=== PATIENT | female | born 1985 | race Two or more races ===

== ENCOUNTER 2019-03-28 16:31 | Emergency (ER) | payer SELFPAY ==
--- NOTE | 2019-03-28 17:13 | ER Document Report ---
ED Medical Screen (RME) - General Chief Complaint: Abdominal Pain Stated Complaint: STOMACH PAIN Time Seen by Provider: 03/28/19 17:08 Mode of Arrival: Ambulatory Information source: Patient Notes: Patient is a 33-year-old female presented to the emergency department chief complaint of low abdominal pain and vaginal bleeding in the setting of . Patient reports she is a G5, P4. She states she had one episode of vaginal bleeding approximately 3 days ago, denies passage of any clots. She reports persistent low abdominal cramping. Exam: Abdomen soft, nontender with no guarding no rebound. I have greeted and performed a rapid initial assessment of this patient. A comprehensive ED assessment and evaluation of the patient, analysis of test results and completion of the medical decision making process will be conducted by additional ED providers. I have specifically instructed the patient or family members with the patient to immediately return to any nursing staff should anything change in the patient's condition or with their chief complaint. This medical record was dictated with voice recognizing software. There may be grammatical, syntax errors that are unintended. - Related Data Allergies/Adverse Reactions: No Known Allergies Allergy (Verified 03/28/19 16:38) Physical Exam - Vital signs Vitals: Temp Pulse Resp BP Pulse Ox 98.5 F 70 18 104/54 L 97 03/28/19 16:41 03/28/19 16:41 03/28/19 16:41 03/28/19 16:41 03/28/19 16:41 Course - Vital Signs Vital signs: Temp Pulse Resp BP Pulse Ox 98.5 F 70 18 104/54 L 97 03/28/19 16:41 03/28/19 16:41 03/28/19 16:41 03/28/19 16:41 03/28/19 16:41
[2019-03-28 18:05] LABS: ABSOLUTE BASOPHILS # (AUTO) 0.1 10^3/uL (0.0-0.2); ABSOLUTE EOSINOPHILS # (AUTO) 0.3 10^3/uL (0.0-0.6); ABSOLUTE MONOCYTES (AUTO) 0.9 10^3/uL (0.1-1.4); BASOPHILS % (AUTO) 0.6 % (0-2); EOSINOPHILS % (AUTO) 2.6 % (0-6); HEMATOCRIT 39.1 % (36.0-47.0); HEMOGLOBIN 13.1 g/dL (12.0-15.5); LYMPHOCYTES % (AUTO) 26.7 % (13-45); MEAN CORPUSCULAR HEMOGLOBIN 29.7 pg (27.0-33.4); MEAN CORPUSCULAR HGB CONC 33.6 g/dL (32.0-36.0); MEAN CORPUSCULAR VOLUME 89 fl (80-97); PLATELET COUNT 216 10^3/uL (150-450); RED BLOOD COUNT 4.42 10^6/uL (3.72-5.28); RED CELL DISTRIBUTION WIDTH 12.4 % (11.5-14.0); SEGMENTED NEUTROPHILS % (AUTO) 62.1 % (42-78); TOTAL CELLS COUNTED % (AUTO) 100 %; WHITE BLOOD COUNT 11.2 10^3/uL (4.0-10.5)
[2019-03-28 18:08] LABS: APPEARANCE,URINE SLIGHTLY-CLOUDY; BILIRUBIN,URINE NEGATIVE (NEGATIVE); COLOR,URINE YELLOW; GLUCOSE, URINE NEGATIVE (NEGATIVE); KETONES,URINE NEGATIVE (NEGATIVE); LEUKOCYTE ESTERASE,URINE TRACE (NEGATIVE); NITRITE,URINE POSITIVE (NEGATIVE); PROTEIN,URINE NEGATIVE (NEGATIVE); URINE SPECIFIC GRAVITY 1.016; UROBILINOGEN,URINE NEGATIVE mg/dL (<2.0)
[2019-03-28] MEDS ORDERED: ACETAMINOPHEN 325 MG TABLET PO ONE (18:59)
--- NOTE | 2019-03-28 19:03 | RADIOLOGY REPORT (SQ) ---
EXAM DESCRIPTION: U/S OB TRANSVAGINAL W/O DOP COMPLETED DATE/TIME: 03/28/2019 6:22 pm REASON FOR STUDY: vag bleed, abd pain, early COMPARISON: None. TECHNIQUE: Transvaginal static and realtime grayscale images acquired of the pelvis. Additional shila cted spectral and color Doppler images recorded. All images stored on PACs. bHCG: Not available. CLINICAL DATES: LMP 02/11/2019. 6 weeks 3 days. LIMITATIONS: None. FINDINGS: FETUS: Single Living intrauterine . ULTRASOUND EGA: 6 weeks 6 days. ULTRASOUND [place]: 11/15/2019 EFW: Not applicable less than 20 weeks. CRL: 0.8 cm. FHR: 130 beats per minute. SURVEY: Too early to assess. AMNIOTIC FLUID: Adequate amount. PLACENTA: Not yet developed due to early gestation. SUBCHORIONIC BLEED: No SIZE OF BLEED: Not applicable. UTERUS: No masses. No anomalies. CERVICAL LENGTH: 2.5 cm. Closed. RIGHT ADNEXA: Normal ovary with normal vascular flow. 1.3 x 1.5 x 1.6 cm. No adnexal free fluid. No adnexal masses. LEFT ADNEXA: Normal ovary with normal vascular flow. 2.4 x 2.3 x 2.5 cm. No adnexal free fluid. No adnexal masses. FREE FLUID: None. OTHER: No other significant finding. IMPRESSION: LIVING INTRAUTERINE . EGA 6 weeks 6 days. Trimester of : First trimester - 0 to 13 weeks. TECHNICAL DOCUMENTATION: JOB ID: [id number] [employer]- All Rights Reserved Reading location - IP/workstation name: [email or web address]
--- NOTE | 2019-03-28 20:32 | ER Document Report ---
ED General - General Chief Complaint: Abdominal Pain Stated Complaint: STOMACH PAIN Time Seen by Provider: 03/28/19 17:08 Primary Care Provider: [facility] [Provider Group] - 04/01/19 Mode of Arrival: Ambulatory Notes: Patient is a 33-year-old female who presents the emergency department with a chief complaint of abdominal pain. Her pain started about 3 days ago. She states that her last menstrual cycle was February 11 and she has had a positive at home. She states that she had a little bit of bleeding about 3 days ago, but it went away. She states the pain is in her mid lower abdomen. Patient is Finnish-speaking and [email or web address] hourly sign language interpreter #[id number] was used to interpret the patient's symptoms. Patient also states that she has had some white discharge from her vagina. - Related Data Allergies/Adverse Reactions: No Known Allergies Allergy (Verified 03/28/19 16:38) Past Medical History - General Information source: Patient - Social History Smoking Status: Never Smoker Frequency of alcohol use: None Drug Abuse: None Family History: Reviewed & Not Pertinent Patient has suicidal ideation: No Patient has homicidal ideation: No Renal/ Medical History: Denies: Hx Peritoneal Dialysis Review of Systems - Review of Systems Notes: REVIEW OF SYSTEMS: CONSTITUTIONAL : Denies recent illness. Denies recent unintentional weight loss. Denies fever, chills, or sweats. EENT: Denies eye, ear, throat, or mouth pain, discharge, or symptoms. Denies nasal or sinus congestion. CARDIOVASCULAR: Denies chest pain. RESPIRATORY: Denies shortness of breath, cough, congestion, difficulty breathing, or wheezing. GASTROINTESTINAL: See HPI GENITOURINARY: Denies difficulty urinating, burning, blood in urine, urgency or frequency. FEMALE GENITOURINARY: See HPI MUSCULOSKELETAL: Denies neck and back pain. Denies joint pain or swelling. SKIN: Denies rash, itchiness, or lesions HEMATOLOGIC : Denies easy bruising or bleeding. LYMPHATIC: Denies swollen, painful, enlarged glands. NEUROLOGICAL: Denies no numbness or tingling denies weakness. Denies headache. Denies altered mental status. Denies alteration in speech. PSYCHIATRIC: Denies stress, anxiety, alteration in sleep patterns, or de pression. All other systems reviewed and negative. Physical Exam - Vital signs Vitals: Temp Pulse Resp BP Pulse Ox 98.5 F 70 18 104/54 L 97 03/28/19 16:41 03/28/19 16:41 03/28/19 16:41 03/28/19 16:41 03/28/19 16:41 - Notes Notes: PHYSICAL EXAMINATION: GENERAL: Appears well, healthy, well-nourished, no acute distress. HEAD: Normocephalic, atraumatic. EYES: PERRL, conjunctiva normal, all extraocular movements intact, sclera nonicteric ENT: Moist mucous membranes. NECK: Supple, no noticeable swelling, redness, rash. Normal range of motion. LUNGS: Equal breath sounds bilaterally and clear to auscultation. No wheezes rales or rhonchi. CARDIOVASCULAR: S1-S2, regular rate, regular rhythm. Radial pulses 2+, normal. ABDOMEN: Normoactive bowel sounds. Soft, mildly tender lower abdomen, no guarding, no rebound tenderness, and no masses palpated. EXTREMITIES: Normal strength and range of motion, no pitting or edema. No cyanosis. NEUROLOGICAL: Moves all extremities upon command. Strength 5/5 in all extremities. PSYCH: Normal mood, normal affect. SKIN: Warm, dry. No rash, lesions, ulcerations noted. Normal skin turgor. SIMULATION TECHNICIAN: Yellow discharge noted. No cervical motion tenderness. Course - Re-evaluation Re-evalutation: 03/28/19 20:45 IVETT Pierce was at bedside for pelvic exam. No cervical motion tenderness noted. There was some discharge noted. Wet mount and gonorrhea chlamydia will be sent. Ultrasound shows a 6-week 6-day gestation. hCG correlates with this finding. Patient does have a leukocytosis, but this may be due to her vaginal discharge. Urine culture will be sent. There is a mild leukocytosis, but this may be due to her vaginal discharge. Will await wet mount results. 03/28/19 22:10 Patient's wet mount shows 3+ bacteria and 4+ epithelial cells. Gonorrhea and Chlamydia have not resulted at this time. I used [employer] hourly sign language interpreter #[id number] to relay the results to the patient. She will be started on Flagyl vaginally and treated for gonorrhea and chlamydia here in the emergency department. She is in agreement with this plan. I have advised the patient not to have sex for the next week. She will follow-up with [facility] in regards to this visit. Follow-up precautions were given. Verbal discharge instructions were given to the patient. They verbalized understanding. They are stable for discharge. - Vital Signs Vital signs: Temp Pulse Resp BP Pulse Ox 97.9 F 62 18 96/54 L 100 03/28/19 21:38 03/28/19 21:38 03/28/19 21:38 03/28/19 21:38 03/28/19 21:38 - Laboratory Result Diagrams: 03/28/19 17:30 Laboratory results interpreted by me: 03/28/19 03/28/19 03/28/19 17:30 17:30 17:30 WBC 11.2 H Beta HCG, Quant 46196.00 H Urine Nitrite POSITIVE H Ur Leukocyte Esterase TRACE H Discharge - Discharge Clinical Impression: Pelvic pain, Bacterial vaginosis Qualifiers: Weeks of gestation: less than 8 weeks Qualified Code(s): Z3A.01 - Less than 8 weeks gestation of Condition: Stable Disposition: HOME, SELF-CARE Additional Instructions: You were seen today in the emergency department for lower abdominal pain. Your ultrasound was normal. Your labs show that you have a vaginal infection. Please take all your antibiotic as prescribed. Please follow-up with [facility] in regards to this visit. Please do not have sex for the next week. If you have worsening pain, please return to the emergency department. You will be called if your gonorrhea and Chlamydia are positive. Prescriptions: Metronidazole [Metrogel 0.75% Vaginal Gel] 5 applic VG QHS #5 tube [facility] [Provider Group] - 04/01/19
[2019-03-28 21:29] LABS: BACTERIA (WET MOUNT) 4+ BACTERIA SEEN; EPITHELIALS (WET MOUNT) 3+ EPITHELIALS SEEN; T.VAGINALIS (WET MOUNT) NO TRICHOMONAS SEEN; WBCS (WET MOUNT) 2+ WBCS SEEN; YEAST (WET MOUNT) NO YEAST SEEN
[2019-03-28 21:40] VITALS: BP 96/54
[2019-03-28] MEDS ORDERED: LIDOCAINE 1% INJ-PF (10 MG/ML) 30 ML SDV INJ ONE (22:10)
[2019-03-28] MEDS ORDERED: CEFTRIAXONE INJ 250 MG VIAL IM ONE (22:10)
[2019-03-28] MEDS ORDERED: AZITHROMYCIN 250 MG TABLET PO ONE (22:10)
[2019-03-28 22:56] LABS: CHLAM PCR NOT DETECTED (NOT DETECT)
== END 2019-03-28 22:49 | disposition home or self-care (01) ==
LOC: ER 16:31
DX: O23.591 Infection of other part of genital tract in pregnancy, first trimester (principal); B96.89 Other specified bacterial agents as the cause of diseases classified elsewhere; R10.2 Pelvic and perineal pain; Z3A.01 Less than 8 weeks gestation of pregnancy
CPT/HCPCS: 99284; 96374; 96375; 86900; 86901; 36415; 87086; 87210; 84702; 85025; 87088; 81001; 87186; 87491; 87591; 76817; J3490; J0696

== ENCOUNTER 2019-04-15 12:40 | Emergency (ER) | payer SELFPAY ==
--- NOTE | 2019-04-15 13:15 | ER Document Report ---
ED Medical Screen (RME) - General Chief Complaint: Vaginal Discharge Stated Complaint: VAGINAL PAIN Time Seen by Provider: 04/15/19 12:54 Mode of Arrival: Ambulatory Information source: Patient Cannot obtain history due to: Other - Malagasy speaking used promotions team leader Rachel Notes: 33-year-old female presented to ED for complaint of pelvic pain burning with urination and white discharge on 28 March. She states she came into the emergency room was seen had treatment with Flagyl vaginal cream and 2 days later she was called and told that she had a infection and that a prescription would be called into the pharmacy. He states he went to the pharmacy and there was no prescription so he went to another pharmacy and they had no prescription. She got better and then today she started with a burning white discharge and pain with urination as well as pelvic pain so she came back to the emergency room. On her last visit she was positive for E. coli in the urine and a prescription for Macrobid was called in to the pharmacy. Patient did not take the Macrobid because they states that it was not at the pharmacy. Patient is about 2 months . Biju Malagasy-speaking promotions team leader #[id number] was used for this interview. I have greeted and performed a rapid initial assessment of this patient. A comprehensive ED assessment and evaluation of the patient, analysis of test results and completion of medical decision making process will be conducted by an additional ED providers. TRAVEL OUTSIDE OF THE [place] IN LAST 30 DAYS: No - Related Data Allergies/Adverse Reactions: No Known Allergies Allergy (Verified 04/15/19 12:41) Past Medical History - Social History Frequency of alcohol use: None Drug Abuse: None Renal/ Medical History: Denies: Hx Peritoneal Dialysis Physical Exam - Vital signs Vitals: Temp Pulse Resp BP Pulse Ox 98.0 F 69 20 99/64 L 98 04/15/19 12:49 04/15/19 12:49 04/15/19 12:49 04/15/19 12:49 04/15/19 12:49 Course - Vital Signs Vital signs: Temp Pulse Resp BP Pulse Ox 98.0 F 69 20 99/64 L 98 04/15/19 12:49 04/15/19 12:49 04/15/19 12:49 04/15/19 12:49 04/15/19 12:49
[2019-04-15 13:40] LABS: APPEARANCE,URINE CLEAR; BILIRUBIN,URINE NEGATIVE (NEGATIVE); COLOR,URINE YELLOW; GLUCOSE, URINE NEGATIVE (NEGATIVE); KETONES,URINE NEGATIVE (NEGATIVE); LEUKOCYTE ESTERASE,URINE LARGE (NEGATIVE); NITRITE,URINE NEGATIVE (NEGATIVE); PROTEIN,URINE NEGATIVE (NEGATIVE); URINE SPECIFIC GRAVITY 1.005; UROBILINOGEN,URINE NEGATIVE mg/dL (<2.0)
[2019-04-15 13:47] LABS: ABSOLUTE EOSINOPHILS # (AUTO) 0.1 10^3/uL (0.0-0.6); ABSOLUTE MONOCYTES (AUTO) 0.7 10^3/uL (0.1-1.4); ABSOLUTE NEUT (AUTO) 5.6 10^3/uL (1.7-8.2); BASOPHILS % (AUTO) 0.3 % (0-2); EOSINOPHILS % (AUTO) 1.7 % (0-6); HEMOGLOBIN 13.8 g/dL (12.0-15.5); LYMPHOCYTES % (AUTO) 23.5 % (13-45); MEAN CORPUSCULAR HEMOGLOBIN 29.2 pg (27.0-33.4); MEAN CORPUSCULAR HGB CONC 33.6 g/dL (32.0-36.0); MEAN CORPUSCULAR VOLUME 87 fl (80-97); MONOCYTES % (AUTO) 7.8 % (3-13); PLATELET COUNT 206 10^3/uL (150-450); RED BLOOD COUNT 4.71 10^6/uL (3.72-5.28); RED CELL DISTRIBUTION WIDTH 12.2 % (11.5-14.0); SEGMENTED NEUTROPHILS % (AUTO) 66.7 % (42-78); TOTAL CELLS COUNTED % (AUTO) 100 %; WHITE BLOOD COUNT 8.4 10^3/uL (4.0-10.5)
[2019-04-15 14:02] LABS: ALBUMIN 4.4 g/dL (3.5-5.0); ALKALINE PHOSPHATASE 39 U/L (38-126); ANION GAP 9 (5-19); ASPARTATE AMINO TRANSFERASE 24 U/L (14-36); BILIRUBIN,DIRECT 0.1 mg/dL (0.0-0.4); BLOOD UREA NITROGEN 5 mg/dL (7-20); CALCIUM 9.3 mg/dL (8.4-10.2); CARBON DIOXIDE 24 mmol/L (22-30); CHLORIDE 103 mmol/L (98-107); GLUCOSE 87 mg/dL (75-110); POTASSIUM 4.1 mmol/L (3.6-5.0); TOTAL PROTEIN 7.4 g/dL (6.3-8.2)
[2019-04-15] MEDS ORDERED: CEPHALEXIN 500 MG CAPSULE PO ONE (14:29)
--- NOTE | 2019-04-15 14:30 | ER Document Report ---
HPI - HPI Patient complains to provider of: Dysuria Time Seen by Provider: 04/15/19 12:54 Onset: This morning Onset/Duration: Gradual Quality of pain: Burning Pain Level: 3 Context: Patient presents complaining of suprapubic tenderness with dysuria. Patient states symptoms started today. Patient has had nausea without any vomiting. Patient denies any fever or flank pain. Associated Symptoms: Nausea, Other - Dysuria. denies: Fever, Vomiting Exacerbated by: Denies Relieved by: Denies Similar symptoms previously: Yes Recently seen / treated by doctor: Yes - ROS ROS below otherwise negative: Yes Systems Reviewed and Negative: Yes All other systems reviewed and negative - CONSTITUTIONAL Constitutional: DENIES: Fever, Chills - RESPIRATORY Respiratory: DENIES: Trouble Breathing, Coughing - GASTROINTESTINAL Gastrointestinal: REPORTS: Abdominal Pain, Nausea. DENIES: Patient vomiting - URINARY Urinary: REPORTS: Dysuria - REPRODUCTIVE LMP: 3 months Reproductive: REPORTS: :. DENIES: Abnormal bleeding / discharge - MUSCULOSKELETAL Musculoskeletal: DENIES: Back Pain - DERM Skin Color: Normal Skin Problems: None Past Medical History - General Information source: Patient - Social History Smoking Status: Never Smoker Frequency of alcohol use: None Drug Abuse: None Occupation: None Lives with: Family Family History: Reviewed & Not Pertinent Patient has suicidal ideation: No Patient has homicidal ideation: No - Medical History Medical History: Negative Renal/ Medical History: Denies: Hx Peritoneal Dialysis Surgical Hx: Negative Vertical Provider Document - CONSTITUTIONAL Agree With Documented VS: Yes Exam Limitations: No Limitations General Appearance: WD/WN, No Apparent Distress - INFECTION CONTROL TRAVEL OUTSIDE OF THE [place] IN LAST 30 DAYS: No - HEENT HEENT: Atraumatic, Normocephalic - NECK Neck: Normal Inspection, Supple. negative: Lymphadenopathy-Left, Lymphadenopathy-Right - RESPIRATORY Respiratory: Breath Sounds Normal, No Respiratory Distress - CARDIOVASCULAR Cardiovascular: Regular Rate, Regular Rhythm, No Murmur - GI/ABDOMEN Gastrointestinal: Abdomen Soft, Abdomen Tender - suprapubic, No Organomegaly. negative: Abdominal Guarding, Abdominal Rebound - BACK Back: Normal Inspection. negative: CVA Tenderness-Right, CVA Tenderness-Left - MUSCULOSKELETAL/EXTREMETIES Musculoskeletal/Extremeties: MAEW - NEURO Level of Consciousness: Awake, Alert, Appropriate Motor/Sensory: No Motor Deficit - DERM Integumentary: Warm, Dry, No Rash Course - Re-evaluation Re-evalutation: 04/15/19 14:31 Patient presents complaining of dysuria symptoms that started today. Patient with UTI based on urinalysis results at this time. Culture will be obtained. Patient nontoxic in appearance. No leukocytosis, no fever. No concern for obstructive uropathy at this time. - Vital Signs Vital signs: Temp Pulse Resp BP Pulse Ox 98.0 F 69 20 99/64 L 98 04/15/19 12:49 04/15/19 12:49 04/15/19 12:49 04/15/19 12:49 04/15/19 12:49 - Laboratory Result Diagrams: 04/15/19 13:30 04/15/19 13:30 Laboratory results interpreted by me: 04/15/19 04/15/19 13:13 13:30 Sodium 136.3 L BUN 5 L Urine Blood SMALL H Ur Leukocyte Esterase LARGE H 04/15/19 14:31 Labs- Entire Visit 04/15/19 04/15/19 04/15/19 13:13 13:30 13:30 WBC 8.4 RBC 4.71 Hgb 13.8 Hct 41.0 MCV 87 MCH 29.2 MCHC 33.6 RDW 12.2 Plt Count 206 Lymph % (Auto) 23.5 [place] % (Auto) 7.8 Eos % (Auto) 1.7 Baso % (Auto) 0.3 Absolute Neuts (auto) 5.6 Absolute Lymphs (auto) 2.0 Absolute Monos (auto) 0.7 Absolute Eos (auto) 0.1 Absolute Basos (auto) 0.0 Seg Neutrophils % 66.7 Sodium 136.3 L Potassium 4.1 Chloride 103 Carbon Dioxide 24 Anion Gap 9 BUN 5 L Creatinine 0.55 Est GFR ( Amer) > 60 Est GFR (MDRD) Non-Af > 60 Glucose 87 Calcium 9.3 Total Bilirubin 1.0 Direct Bilirubin 0.1 Neonat Total Bilirubin Not Reportable Neonat Direct Bilirubin Not Reportable Neonat Indirect Bili Not Reportable AST 24 ALT 17 Alkaline Phosphatase 39 Total Protein 7.4 Albumin 4.4 Urine Color YELLOW Urine Appearance CLEAR Urine pH 7.0 Ur Specific [place] 1.005 Urine Protein NEGATIVE Urine Glucose (UA) NEGATIVE Urine Ketones NEGATIVE Urine Blood SMALL H Urine Nitrite NEGATIVE Urine Bilirubin NEGATIVE Urine Urobilinogen NEGATIVE Ur Leukocyte Esterase LARGE H Urine WBC (Auto) 75 Urine RBC (Auto) 1 Urine Bacteria (Auto) 1+ Squamous Epi Cells Auto 2 Urine Ascorbic Acid NEGATIVE - Diagnostic Test Radiology reviewed: Reports reviewed - Reviewed ultrasound report from previous ER visit Discharge - Discharge Clinical Impression: UTI (urinary tract infection) Qualifiers: Urinary tract infection type: site unspecified Hematuria presence: with hematuria Qualified Code(s): N39.0 - Urinary tract infection, site not specified Condition: Stable Disposition: HOME, SELF-CARE Instructions: Cephalexin ([facility]), Urinary Tract Infection ([facility]) Additional Instructions: Return immediately for any new or worsening symptoms Followup with your primary care provider, call tomorrow to make a followup appointment Follow-up with the health department to get established for care Urine culture is pending, we will call if you need any different treatment Prescriptions: Cephalexin Monohydrate [Keflex 500 mg Capsule] 500 mg PO BID 5 Days capsule Referrals: [facility] [NO LOCAL MD] - Follow up in 3-5 days Print Language: Kyrgyz
[2019-04-15 15:21] VITALS: BP 98/53
== END 2019-04-15 15:16 | disposition home or self-care (01) ==
LOC: ER 12:40
DX: N39.0 Urinary tract infection, site not specified (principal); R10.2 Pelvic and perineal pain; R11.0 Nausea
CPT/HCPCS: 36415; 80053; 81001; 84702; 85025; 87086; 87088; 87186; 99284